=== PATIENT | male | born 1965 | race African-American/Black ===

== ENCOUNTER 2019-04-12 09:10 | Inpatient (IN) | payer OTHER ==
[2019-04-12] VITALS (11 sets, daily range): BP systolic 136–150; BP diastolic 61–96
[~2019-04-12] VITALS: Ht 175.3 cm; Wt 87.1 kg
--- NOTE | ~2019-04-12 | EKG ---
[facility] [place] [address] ELECTROCARDIOGRAM REPORT Name: JACOBYGUILLERMINA Room #: [facility].#: [id number] Admission: Attend Phys: Discharge: Date of : 65 Report #: [id number] THIS REPORT FOR: cc: JAMEY Carcamo family physician/PCP Jurgen Seaman MD ~ THIS REPORT FOR: //name// [facility] ED Test Date: 2019-04-12 Test Time: 09:10:56 Pat Name: GUILLERMINA DOZIER Department: Room: Gender: M Survey Analyst: J : 1965 Requested By: Marianne Mathis Order Number: [id number] MD: Measurements Intervals [place] Rate: 81 P: 27 IN: 149 QRS: -49 QRSD: 85 T: 29 QT: 345 QTc: 401 Interpretive Statements Sinus rhythm Probable left atrial enlargement Consider RVH or posterior infarct Inferior infarct, old Compared to ECG 11/03/2014 10:09:00 Myocardial infarct finding now present Myocardial infarct finding now present [email or web address] By: 0910 0910 Epiphany EpiphanyMD /EPI
--- NOTE | ~2019-04-12 | EKG ---
[facility] [address] [place] [address] ELECTROCARDIOGRAM REPORT Name: GUILLERMINA DOZIER Room #: 205-P ADM IN M.R.#: [id number] Admission: 04/12/19 Attend Phys: Jazmín Gil MD Discharge: Date of : 65 Report #: [id number] THIS REPORT FOR: cc: JAMEY - No family physician/PCP JAMEY - No family physician/PCP Jurgen Seaman MD ~ THIS REPORT FOR: //name// [facility] Test Date: 2019-04-13 Test Time: 07:48:49 Pat Name: GUILLERMINA DOZIER Department: Room: 205 P Gender: M Financial Systems Manager: SUNI : 1965 Requested By: Simon Cleveland Order Number: [id number] MD: Measurements Intervals [place] Rate: 68 P: 33 [place]: 158 QRS: -5 QRSD: 80 T: -13 QT: 406 QTc: 432 Interpretive Statements Sinus rhythm Consider left atrial enlargement RSR' in V1 or V2, right VCD or RVH Nonspecific T abnormalities, inferior leads ST elevation, consider inferior injury Compared to ECG 11/03/2014 10:09:00 Right ventricular hypertrophy now present RSR' in V1 or V2 now present T-wave abnormality now present ST (T wave) deviation now present Myocardial infarct finding now present [email or web address] By: Epiphany EpiphanyMD /EDUARDO
--- NOTE | ~2019-04-12 | HC ---
[facility] [place] [address] CONSULTATION Name: GUILLERMINA DOZIER JR Room #: 160-1 ADM IN M.R.#: [id number] Admission: 04/12/19 Attend Phys: Jazmín Gil MD Discharge: Date of : 65 Report #: [id number] THIS REPORT FOR: cc: JAMEY - No family physician/PCP JAMEY - No family physician/PCP Simon Cleveland MD [facility] THIS REPORT FOR: //name// CC: Jazmín Gil FAM physician/PCP DATE OF SERVICE: 04/12/2019 REASON FOR CONSULTATION: Chest pain. HISTORY OF PRESENT ILLNESS: The patient is a 53-year-old gentleman with tobacco dependency. On of this past week while eating dinner, he experienced midsternal chest pain and tightness. He thought that this was indigestion. The pain was unrelieved with Mylanta. Pain waxed and waned, although became much more severe yesterday and then this morning was associated with shortness of breath. He has ongoing discomfort and presented to the Emergency Department where an EKG demonstrated inferior-posterior infarct with 0.[address] segment elevation. This is new from an EKG dated 11/03/2014. Troponin was elevated. I was called to see him in this regard. He denies orthopnea or paroxysmal nocturnal dyspnea. He has had intermittent diaphoresis when the pain is more intense. ALLERGIES: There are no known drug allergies. MEDICATIONS: He takes no medicines on a regular basis. PAST MEDICAL HISTORY: Medical records have been reviewed. No significant illnesses, hospitalizations or surgeries. 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 . Tobacco smoker. FAMILY HISTORY: Unremarkable for premature coronary artery disease. REVIEW OF SYSTEMS: All systems negative except as that noted above. PHYSICAL EXAMINATION: GENERAL: A pleasant gentleman who is alert. He has ongoing midsternal chest pain. VITAL SIGNS: Blood pressure is 150/80, heart rate of 97 and regular. He is afebrile. HEENT: There is neither xanthelasma, subcutaneous xanthomata, oral mucosal or [facility] [address] [place] [address] CONSULTATION Name: GULILERMINA DOZIER Room #: 160-1 ADM IN ..#: [id number] Admission: 04/12/19 Attend Phys: Jazmín Gil MD Discharge: Date of : 65 Report #: [id number] digital cyanosis or kyphoscoliosis present. CHEST: Clear to auscultation and percussion. CARDIAC: Regular rate and rhythm with normal S1, S2. Heart sounds are distant. ABDOMEN: Soft and nontender. EXTREMITIES: Without cyanosis, clubbing or edema. Radial pulses are 2+. NEUROLOGIC: He is alert with a nonfocal exam. LABORATORY DATA: Sodium 134, potassium 3.7, creatinine 1.5, glucose 148. Troponin 4.4. ProBNP of 337. White count 13.4, hemoglobin 15, hematocrit 45, platelet count 264. Chest x-ray is normal. EKG as detailed above. IMPRESSION: 1. Inferior-posterior myocardial infarction, recent with ongoing pain; post margot-infarct angina. 2. Hypertension. 3. Dyslipidemia. 4. Elevated blood sugar without prior diagnosis of diabetes. 5. Acute kidney injury versus chronic kidney disease. 6. Tobacco dependency. RECOMMENDATIONS: Urgent coronary angiography. No contraindications to anticoagulant or dual antiplatelet therapy. I have discussed the angiographic procedure with the patient and his . I have outlined associated risks as well as the risks associated with a percutaneous intervention. After a thorough discussion of the procedure, its risks and alternatives and after answering his questions, he is agreeable to proceeding. By: 1049 1130 Simon Cleveland MD, FACC /nt
--- NOTE | ~2019-04-12 | EKG ---
[facility] [place] [address] ELECTROCARDIOGRAM REPORT Name: GUILLERMINA DOZIER Room #: 205-P ADM IN M.R.#: [id number] Admission: 04/12/19 Attend Phys: Jazmín Gil MD Discharge: Date of : 65 Report #: [id number] THIS REPORT FOR: cc: JAMEY - No family physician/PCP JAMEY - No family physician/PCP Jurgen Seaman MD ~ THIS REPORT FOR: //name// [facility] ED Test Date: 2019-04-12 Test Time: 10:03:34 Pat Name: GUILLERMINA DOZIER Department: Room: 205 P Gender: M Principal Bioinformatics Specialist: ARISTEO : 1965 Requested By: Jazmín Gil Order Number: [id number] MD: Measurements Intervals [place] Rate: 78 P: 28 [place]: 158 QRS: -45 QRSD: 76 T: 14 QT: 359 QTc: 409 Interpretive Statements Pacemaker spikes or artifacts Sinus rhythm Probable left atrial enlargement Consider RVH or posterior infarct Inferior infarct, acute (RCA) Minimal ST elevation, anterior leads Lateral leads are also involved Probable RV involvement, suggest recording right precordial leads Compared to ECG 11/03/2014 10:09:00 Myocardial infarct finding now present Myocardial infarct finding now present ST (T wave) deviation now present [email or web address] By: 02 02 Epiphany EpiphanyMD /EDUARDO
[~2019-04-12 09:10] MED LIST: NOHOMEMEDICATIONS; NORCO 5-325 TA1 EACH PO; PENICILLIN VK500 M1 PO; VICODIN 5-5001 EACH PO
[2019-04-12 09:43] LABS: ABSOLUTE NEUTROPHILS 9.9 thou/uL (1.4-8.2); BASOPHILS 0.4 % (0.0-2.0); HEMATOCRIT 45.2 % (42.0-52.0); MCH 31.9 pg (26.0-34.0); MCHC 33.3 g/dL (28.0-37.0); MCV 95.8 fL (80.0-100.0); MONOCYTES 8.4 % (1.0-8.0); PLATELET COUNT 264 thou/uL (150-400); POLYS 74.2 % (36.0-66.0); RBC 4.72 mil/uL (4.50-6.00); RDW 13.9 % (10.5-14.5); WBC 13.4 thou/uL (4.0-11.0)
[2019-04-12 09:47] LABS: ANION GAP 10 mmol/L (7-16); BUN 6 mg/dL (7-18); CALCIUM 8.6 mg/dL (8.5-10.1); CHLORIDE 99 mmol/L (98-107); CO2 25 mmol/L (21-32); CREATININE 1.5 mg/dL (0.7-1.3); GLUCOSE 148 mg/dL (74-106); POTASSIUM 3.7 mmol/L (3.5-5.1); SODIUM 134 mmol/L (136-145)
[2019-04-12 09:57] LABS: ALBUMIN 3.6 g/dL (3.4-5.0); DIRECT BILIRUBIN < 0.1 mg/dL (<0.1-0.2); SGOT 38 U/L (15-37); SGPT 34 U/L (30-65); TOTAL BILIRUBIN 0.4 mg/dL (<0.1-1.0); TOTAL PROTEIN 7.6 g/dL (6.4-8.2)
[2019-04-12 10:56] LABS: CHOLESTEROL 255 mg/dL (<200); HDL CHOLESTEROL 60 mg/dL (>40); LDL CHOLESTEROL 159 mg/dL (<100); TC:HDL 4.3 Ratio (Not establshd); TRIGLYCERIDE 181 mg/dL (<150); VLDL 36 mg/dL (<40)
--- NOTE | 2019-04-12 11:48 | CATHLAB ---
[facility] [address] [place] [address] INVASIVE PROCEDURE REPORT Name: GUILLERMINA DOZIER Room #: 205-P ADM IN M.R.#: [id number] Admission: 04/12/19 Attend Phys: Jazmín Gil MD Discharge: Date of : 65 Report #: [id number] THIS REPORT FOR: cc: JAMEY - Dona family physician/PCP JAMEY - No family physician/PCP Simon Cleveland MD [facility] THIS REPORT FOR: //name// APPROVED REPORT Study performed: 04/12/2019 10:44:09 Patient Details Patient Status: In-Patient Room #: The patient is a 53 year-old male Event Personnel Simon Cleveland Industrial Green Systems Designer, Dalia Chacon RN RN, Shona Rios Monitor, Cody Cheng RTR Scrub Procedures Performed Art Access - R femoral artery* 06376 Initial Mod Sed Same Phys/QHP Gr5y 733783 86095 Mod Sed Same Phys/QHP Ea 194850 Left Heart Cath w/or w/o Coronaries 8540679 C Hemostasis w/ Mynx Indication Non-STEMI Procedure Narrative The patient was brought urgently to the Cardiac Catheterization Laboratory and was prepped and draped in a sterile manner. The Right Groin^ was infiltrated with 1% Lidocaine subcutaneous anesthesia. A PINNACLE 6FR Sheath #[id number] sheath was inserted into the RFA^. Coronary angiography was performed using coronary diagnostic catheters. The right coronary system was accessed and visualized with a JR 4 catheter. The left coronary system was accessed and visualized with a JL 4 catheter. The left ventricle was accessed and visualized with a Pigtail catheter. Left ventricular/Aortic Valve gradient assessed via catheter pullback. Left ventriculogram was performed in MONTIEL projection. Closure device was deployed with a 6 Fr Mynx. The patient tolerated the procedure well and there were no complications associated with the procedure. There was no hematoma. [facility] [place] [address] INVASIVE PROCEDURE REPORT Name: GUILLERMINA DOZIER JR Room #: 205-P [facility] IN .R.#: [id number] Admission: 04/12/19 Attend Phys: Sherron Del Toro Discharge: Date of : 65 Report #: [id number] Intraoperative Conscious Sedation Sedation start time: 10:59 Case end Time: 11:19 Fentanyl 100 mcg Versed 2 mg Fluoro Time: 2.07 minutes Dose: DAP 4422.00 cGycm2 512 mGy Contrast Type and Amount: Visipaque 100 ml Coronary Angiography The patient's coronary anatomy is left dominant. Diagnostic Cath Left Main Normal left main LAD The LAD was normal in its course until the apical portion which was occluded Diagonal 1 First diagonal branch, bifurcating proximal and large in caliber, angiographically normal Diagonal 2 Small second diagonal branch, angiographically normal Circumflex Large, dominant circumflex, angiographically normal OM1 First marginal branch angiographically normal Right Coronary Nondominant right coronary, moderate in size and angiographically normal Left Ventriculography The left ventricle is normal in size with abnormal contractility. The left ventricular ejection fraction is estimated to be 45-50%. Left ventricular wall motion abnormalities are present. There is no mitral insufficiency. Hypokinesis of the distal inferior wall near the apex Hemodynamics The aortic pressure is 135/68 mmHg with a mean of 96 mmHg. The left ventricular pressure is 152/5 mmHg with a mean of mmHg. The left ventricular end diastolic pressure is 17 mmHg. Conclusion 1. Mild left ventricular dysfunction with hypokinesis involving the distal inferior wall near the apex 2. Normal coronary vasculature except for distally occluded LAD at the apex 3. Normal left main 4. Left dominant circulation [facility] [address] [place] [address] INVASIVE PROCEDURE REPORT Name: GUILLERMINA DOZIER Room #: 205-P [facility] IN .R.#: [id number] Admission: 04/12/19 Attend Phys: Sherron Del Toro Discharge: Date of : 65 Report #: [id number] Recommendations Smoking Cessation Cardiac Rehabilitation Referral Aggressive Medical Therapy Medications Administered ARB (any) Aspirin (any) Beta Vanessa (any) Statin (any) <ELECTRONICALLY SIGNED> By: Simon Cleveland MD, [facility] 04/12/19 1147 1147 1147 Simon Cleveland MD, FACC /INF
--- NOTE | 2019-04-12 19:35 | NUR ---
ASSUMED CARE AT 1130, ER ADMISSION, WENT TO THE MEDICAL DEVICE, NO INTERVENTION. BED REST FOR 3 HOUR. RIGHT GROIN SITE CLEAN, DRY, INTACT. UP WITH STANDBY ASSIST. DENIES PAIN, NAUSEA, VOMITING. WILL CONTINUE TO ASSESS AND ASSIST WITH ADLs NEEDED.
[2019-04-13 00:23] VITALS: BP 124/77
--- NOTE | 2019-04-13 02:09 | NUR ---
ASSESSMENTS CHARTED, MEDS GIVEN CHARTED. PATIENT OFF BEDREST AT START OF SHIFT. HAD CARDIAC CATH EARLIER IN THE DAY, RIGHT GROIN ACCESS SITE BANDAGED WITH GAUZE CLEAN, DRY, INTACT, AREA SOFT. ALERT AND ORIENTED. ON ROOM AIR. UP WITH STANDBY ASSIST TO BATHROOM. DENIES PAIN. PLAN OF CARE IS TO MANAGE MEDICALLY.
[2019-04-13 04:06] VITALS: BP 103/71
[2019-04-13 04:06] LABS: GLYCOHEMOGLOBIN (HGB A1C) 5.6 % (4.8-5.6)
[2019-04-13 04:35] LABS: HEMATOCRIT 43.9 % (42.0-52.0); HEMOGLOBIN 14.4 gm/dL (14.0-18.0); MCH 31.5 pg (26.0-34.0); MCHC 32.7 g/dL (28.0-37.0); MCV 96.3 fL (80.0-100.0); RBC 4.56 mil/uL (4.50-6.00); RDW 14.2 % (10.5-14.5)
[2019-04-13 04:51] LABS: CALCIUM 8.8 mg/dL (8.5-10.1); CREATININE 1.2 mg/dL (0.7-1.3); POTASSIUM 3.9 mmol/L (3.5-5.1)
[2019-04-13 07:35] VITALS: BP 103/71
--- NOTE | 2019-04-13 10:34 | NUR ---
ASSUMED CARE AT 0700, SHIFT ASSESSMENT DONE, NSR ON TELE, ROOM AIR. DENIES PAIN, NAUSEA, VOMITING. UP AD YULY. DENIES CHEST PAIN. PLAN FOR DC FOR TOMORROW. WILL CONTINUE TO ASSESS AND ASSIST WITH ADLs NEEDED.
[2019-04-13 11:20] VITALS: BP 101/58
--- NOTE | 2019-04-13 16:08 | 2DMMODE ---
[facility] [address] [place] [address] 2 D/M-MODE ECHOCARDIOGRAM Name: GUILLERMINA DOZIER Room #: 205-P ADM IN M.R.#: [id number] Admission: 04/12/19 Attend Phys: Jazmín Gil MD Discharge: Date of : 65 Report #: [id number] THIS REPORT FOR: cc: JAMEY - Dona family physician/PCP JAMEY - No family physician/PCP Simon Cleveland MD [facility] ~ THIS REPORT FOR: //name// APPROVED REPORT Study performed: 04/13/2019 14:32:17 EXAM: Comprehensive 2D, Doppler, and color-flow Echocardiogram Patient Location: Echo lab Room #: 205 Status: routine BSA: 2.03 HR: 69 bpm BP: 101/58 mmHg Rhythm: NSR Other Information Study Quality: Good Indications Elevated Troponin Chest Pain Hypertension/HDD 2D Dimensions RVDd: 34.42 mm IVSd: 8.50 (7-11mm) LVOT Diam: 20.83 (18-24mm) LVDd: 46.12 mm PWd: 8.58 (7-11mm) Ascending Ao: 24.14 (22-36mm) LVDs: 28.32 (25-40mm) Aortic Root: 30.91 mm IVC: 15.00 mm Volumes Left Atrial Volume (Systole) Single Plane 4CH: 42.78 mL Single Plane 2CH: 41.11 mL LA ESV Index: 23.00 mL/m2 Aortic Valve AoV Peak Lito.: 1.45 m/s [facility] [address] [place] [address] 2 D/M-MODE ECHOCARDIOGRAM Name: GUILLERMINA DOZIER JR Room #: 205-P [facility] IN .R.#: [id number] Admission: 04/12/19 Attend Phys: Sherron Del Toro Discharge: Date of : 65 Report #: [id number] Peak Gr.: 8.36 mmHg LVOT Max P.69 mmHg LVOT Max V: 1.19 m/s ERNESTINE Vmax: 2.81 cm2 Mitral Valve E/A Ratio: 1.2 MV Decel. Time: 213.51 ms MV E Max Lito.: 0.95 m/s MV A Lito.: 0.80 m/s MV PHT: 61.92 ms IVRT: 78.43 ms Pulmonary Valve PV Peak Lito.: 1.04 m/s PV Peak Gr.: 4.33 mmHg Pulmonary Vein P Vein S: 0.57 m/s P Vein A: 0.20 m/s P Vein D: 0.57 m/s P Vein A Dur.: 78.4 msec P Vein S/D Ratio: 1.00 Tricuspid Valve TR Peak Lito.: 2.29 m/s TR Peak Gr.: 21.03 mmHg PA Pressure: 26.00 mmHg Left Ventricle The left ventricle is normal size. There is normal LV segmental wall motion. There is normal left ventricular wall thickness. The left ventricular systolic function is normal. The left ventricular ejection fraction is within the normal range. LVEF is 55-60%. The left ventricular diastolic function is normal. Right Ventricle The right ventricle is normal size. The right ventricular systolic function is normal. Atria The left atrium size is normal. The right atrium size is normal. Aortic Valve The aortic valve is normal in structure. No aortic regurgitation is present. There is no aortic valvular stenosis. Mitral Valve The mitral valve is normal in structure. There is no mitral valve [facility] [address] [place] [address] 2 D/M-MODE ECHOCARDIOGRAM Name: GUILLERMINA DOZIER Room #: 205-P ADM IN .R.#: [id number] Admission: 04/12/19 Attend Phys: Sherron Del Toro Discharge: Date of : 65 Report #: [id number] regurgitation noted. No evidence of mitral valve stenosis. Tricuspid Valve The tricuspid valve is normal in structure. There is trace tricuspid regurgitation. Estimated PAP 26 mmHg. There is no pulmonary hypertension. Pulmonic Valve The pulmonary valve is normal in structure. There is no pulmonic valvular regurgitation. Great Vessels The aortic root is normal in size. IVC is normal in size and collapses >50% with inspiration. Pericardium There is no pericardial effusion. <Conclusion> The left ventricular systolic function is normal. There is normal LV segmental wall motion. LVEF is 55-60%. Normal diastolic function The aortic valve is normal in structure. No aortic regurgitation or stenosis The mitral valve is normal in structure. No mitral valve regurgitation There is trace tricuspid regurgitation. Estimated pulmnonary artery pressure of 26 mmHg. There is no pericardial effusion. <ELECTRONICALLY SIGNED> By: Simon Cleveland MD, [facility] 04/13/19 1607 1607 1607 Simon Cleveland MD, FACC /INF
[2019-04-13 16:20] VITALS: BP 107/63
--- NOTE | 2019-04-13 17:35 | NUR ---
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 He has been with [facility] 6 months. He is not eligible for benefits. Lives with , independent with adls ferryboat captain. reviewed [address] and medicaid qualifications. ePrep to sp with patient. Given [facility] and Health resource guide. Encouraged to make apt before leaving hospital/
[2019-04-13 20:47] VITALS: BP 97/62
[2019-04-14 05:03] VITALS: BP 101/60
[2019-04-14] MEDS ORDERED: LIPITOR40 MG PO (07:29)
[2019-04-14] MEDS ORDERED: METOPROLOL SUCC50 MG PO (07:29)
[2019-04-14] MEDS ORDERED: COZAAR 25 MG TA25 M1 PO (07:29)
[2019-04-14] MEDS ORDERED: ASPIRIN325 PO (07:29)
[2019-04-14 08:10] VITALS: BP 103/64
[2019-04-14 12:39] VITALS: BP 102/68
[2019-04-14 14:33] VITALS: BP 102/68
--- NOTE | 2019-04-14 15:07 | NUR ---
ASSUMED CARE OF PT AT SHIFT CHANGE. ASSESSMENTS CHARTED. MEDS GIVEN PER MAY. VSS. NO C/O PAIN, N/V OR SOA. GROIN SITE REMAINS SOFT WITH NO HEMATOMA OR BRUISING. DISCHARGE ORDERS AND INSTRUCTIONS COMPLETE. IV AND TELE DC'D. PT LEFT WITH TO OWN CAR.
--- NOTE | 2019-04-14 15:30 | NUR ---
patient to dc vouched for medication in amount of $20
== END 2019-04-14 16:11 | disposition home or self-care (01) | DRG 281 ==
LOC: ER 09:10 → TBACV 10:55 → 2N 11:02
PROVIDERS: Emergency Medicine; Hospitalist; Internal Medicine; ADMIT Hospitalist
PROC: 4A023N7 Measurement of Cardiac Sampling and Pressure, Left Heart, Percutaneous Approach (ICD-10-PCS; principal; 2019-04-12)
PROC: B215YZZ Fluoroscopy of Left Heart using Other Contrast (ICD-10-PCS; principal; 2019-04-12)
PROC: B211YZZ Fluoroscopy of Multiple Coronary Arteries using Other Contrast (ICD-10-PCS; principal; 2019-04-12)
DX: I21.11 ST elevation (STEMI) myocardial infarction involving right coronary artery (principal); N17.9 Acute kidney failure, unspecified; F12.90 Cannabis use, unspecified, uncomplicated; N18.9 Chronic kidney disease, unspecified; I12.9 Hypertensive chronic kidney disease with stage 1 through stage 4 chronic kidney disease, or unspecified chronic kidney disease; E78.5 Hyperlipidemia, unspecified; E11.22 Type 2 diabetes mellitus with diabetic chronic kidney disease; F17.210 Nicotine dependence, cigarettes, uncomplicated; I25.10 Atherosclerotic heart disease of native coronary artery without angina pectoris; Z23 Encounter for immunization; Z79.899 Other long term (current) drug therapy
CPT/HCPCS: 10081